=== PATIENT | female | born 1990 | race Caucasian/White ===

== ENCOUNTER 2016-04-28 09:12 | Emergency (ER) | payer OTHER | END 2016-04-28 10:34 | disposition home or self-care (01) | LOC: ED 09:12 | DX: J02.0 Streptococcal pharyngitis (principal); H65.93 Unspecified nonsuppurative otitis media, bilateral; I88.9 Nonspecific lymphadenitis, unspecified; F17.210 Nicotine dependence, cigarettes, uncomplicated ==